=== PATIENT | male | born 1995 | race Caucasian/White ===

== ENCOUNTER 2016-11-17 14:26 | Emergency (ER) | payer MEDICAID, OTHER ==
[2016-11-17 14:32] VITALS: O2SAT 100
[2016-11-17] MEDS ORDERED: Naproxen 550 mg Tab PO STA (14:59)
[2016-11-17] MEDS ORDERED: Naproxen 550 mg Tab PO ONE (15:07)
--- NOTE | 2016-11-17 15:27 | C.PDOC ---
History Of Present Illness 21 yr old male presents to [facility] ER with complaints of intermittent right hip pain for a long time, however has been worse since yesterday. Patient also reports 1 episode of vomiting. Denies injury, fall, fever, nausea, abdominal pain, diarrhea, dysuria, hematuria, weakness or numbness. Time Seen by Provider: 11/17/16 14:44 Chief Complaint (Nursing): Hip Pain History Per: Patient History/Exam Limitations: no limitations Onset/Duration Of Symptoms: Intermittent Episodes (Long time) Past Medical History Reviewed: Historical Data, Nursing Documentation, Vital Signs Vital Signs: Last Vital Signs Temp 98.2 F 11/17/16 15:46 Pulse 89 11/17/16 15:46 Resp 16 11/17/16 15:46 BP 122/70 11/17/16 15:46 Pulse Ox 100 11/17/16 16:12 - [facility] Procedures CLOSURE SKIN & SUBCUTANEOUS NEC (04/03/13) Family History: States: No Known Family Hx - Social History Hx Tobacco Use: No Hx Alcohol Use: Yes Hx Substance Use: No - Immunization History Hx Tetanus Toxoid Vaccination: No Hx Influenza Vaccination: No Hx Pneumococcal Vaccination: No Review Of Systems Except As Marked, All Systems Reviewed And Found Negative. Constitutional: Negative for: Fever Gastrointestinal: Positive for: Vomiting (1 episode). Negative for: Nausea, Abdominal Pain, Diarrhea Genitourinary: Negative for: Dysuria, Hematuria Neurological: Negative for: Weakness, Numbness Physical Exam - Physical Exam Appears: Non-toxic, No Acute Distress Skin: Warm, Dry, No Rash Head: Atraumatic, Normacephalic Oral Mucosa: Moist Chest: Symmetrical, No Tenderness Cardiovascular: Rhythm Regular, No Murmur Respiratory: Normal Breath Sounds, No Rales, No Rhonchi, No Stridor, No Wheezing Gastrointestinal/Abdominal: Normal Exam, Soft, No Tenderness, No Guarding, No Rebound Back: Normal Inspection, No CVA Tenderness, No Paraspinal Tenderness Extremity: Normal ROM (Bilateral hips), Tenderness (Right Hip - Mild tenderness to palpation at the illiac crest.), No Calf Tenderness, No Deformity, No Swelling ED Course And Treatment O2 Sat by Pulse Oximetry: 100 - Other Rad X-Ray - Bilateral Hips X-Ray: Viewed By Me, Read By Radiologist Interpretation: no fractures/dislocation, no arthritic changes Progress Note: Xray ordered and reviewed. Patient given PO Naprosyn for pain. Medical Decision Making Medical Decision Making: PLAN: * X-Ray - Bilateral Hips * Naproxen PO Disposition Counseled Patient/Family Regarding: Studies Performed, Diagnosis, Need For Followup, Rx Given - Disposition Referrals: [facility] [Outside] [facility] [Outside] Sujit Benitez III, MD [Staff Provider] - Disposition: HOME/ ROUTINE Disposition Time: 15:30 Condition: STABLE Additional Instructions: FOLLOW UP WITH ORTHOPEDICS WITHIN 1 WEEK USE PAIN MEDICATION NEEDED RETURN TO ER IF SYMPTOMS WORSEN Prescriptions: Naproxen [Naprosyn Tab] 375 mg PO BID PRN #20 tab PRN Reason: pain Instructions: Hip Pain (ED) Forms: Work Excuse Print Language: [place] - POA Present On Arrival: None - Clinical Impression Clinical Impression: Right hip pain - Scribe Statement The provider has reviewed the documentation as recorded by the Chrisibjosé Panchal Provider Attestation: All medical record entries made by the Chrisibe were at my direction and personally dictated by me. I have reviewed the chart and agree that the record accurately reflects my personal performance of the history, physical exam, medical decision making, and the department course for this patient. I have also personally directed, reviewed, and agree with the discharge instructions and disposition.
--- NOTE | 2016-11-17 15:34 | RAD ---
Pelvis and bilateral hips two views History: Right hip pain. Comparison: None available. Findings: Right hip: No evidence for acute displaced fracture or dislocation. Joint space is preserved. Evaluation of the remainder of the bony pelvis and left hip appears grossly preserved. Impression: Negative acute. If pain persists, consider MRI.
[2016-11-17 15:48] VITALS: BP 122/70; PULSE 89; RESP 16; TEMP 98.2
== END 2016-11-17 15:46 | disposition home or self-care (01) ==
LOC: C.ER 14:26
DX: M25.551 Pain in right hip (principal)